=== PATIENT | male | born 1940 | race African-American/Black ===

== ENCOUNTER 2016-09-02 19:34 | Emergency (ER) | payer BC, OTHER ==
[2016-09-02] MEDS ORDERED: Adacel (T-DAP) 0.5 ML VIAL ONE (19:52)
--- NOTE | 2016-09-02 20:10 | RAD ---
THREE VIEWS OF THE LEFT SMALL FINGER 09/02/16 HISTORY: Caught object along the side of a trailer with injury to the distal aspect of the finger. FINDINGS: Three views of the left small finger shows no evidence of acute fracture or dislocation. Soft tissue swelling is seen in the distal aspect of the finger. IMPRESSION: Soft tissue swelling without underlying osseous abnormality. POS: [facility]
[2016-09-02] MEDS ORDERED: Lidocaine 1% 20 ML MDV ONE (20:20)
[2016-09-02] MEDS ORDERED: Bacitracin Zinc 1 Packet ONE (20:35)
== END 2016-09-02 20:48 | disposition home or self-care (01) ==
LOC: NAV ERS 19:34
DX: S61.217A Laceration without foreign body of left little finger without damage to nail, initial encounter (principal); I10 Essential (primary) hypertension; W23.0XXA Caught, crushed, jammed, or pinched between moving objects, initial encounter
CPT/HCPCS: 12001; 90471; 90715; J2001

== ENCOUNTER 2016-09-12 15:54 | Emergency (ER) | payer MEDICARE, BC | END 2016-09-12 16:25 | disposition home or self-care (01) | LOC: NAV ERS 15:54 | DX: S61.217D Laceration without foreign body of left little finger without damage to nail, subsequent encounter (principal); I25.10 Atherosclerotic heart disease of native coronary artery without angina pectoris; I25.2 Old myocardial infarction; I10 Essential (primary) hypertension; W20.8XXD Other cause of strike by thrown, projected or falling object, subsequent encounter ==

== ENCOUNTER 2018-04-26 22:10 | Emergency (ER) | payer MEDICARE, BC ==
[2018-04-26] MEDS ORDERED: Lidocaine 1% (PF) 30 ML VIAL ONE (22:46)
--- NOTE | 2018-04-26 23:18 | CT ---
CT HEAD WITHOUT CONTRAST: 04/26/18 COMPARISON: None. HISTORY: Fall, trauma, pain. TECHNIQUE: Axial CT imaging at 5 mm intervals from vertex through skull base with coronal and sagittal reformatt ed imaging. FINDINGS: There is soft tissue swelling involving the scalp laterally on the left superior to and anterior to t he left ear. There is no intracranial hemorrhage, midline shift, or mass effect noted. The paranasal sinuses/mastoid air cells are well aerated. There is no displaced calvarial fracture. IMPRESSION: Left lateral scalp swelling. No associated fracture or intracranial hemorrhage. POS: [facility]
[2018-04-26] MEDS ORDERED: Bacitracin Zinc 1 Packet ONE (23:44)
== END 2018-04-26 23:50 | disposition home or self-care (01) ==
LOC: NAV ERS 22:10
DX: S01.312A Laceration without foreign body of left ear, initial encounter (principal); S40.012A Contusion of left shoulder, initial encounter; S70.12XA Contusion of left thigh, initial encounter; I25.10 Atherosclerotic heart disease of native coronary artery without angina pectoris; I25.2 Old myocardial infarction; I10 Essential (primary) hypertension; W01.0XXA Fall on same level from slipping, tripping and stumbling without subsequent striking against object, initial encounter
CPT/HCPCS: 12011; 70450; J2001

== ENCOUNTER 2018-05-17 16:11 | Emergency (ER) | payer MEDICARE, BC ==
[2018-05-17] MEDS ORDERED: Acetaminophen 500 MG TAB ONE (17:14)
== END 2018-05-17 17:39 | disposition home or self-care (01) ==
LOC: NAV ERS 16:11
DX: B34.9 Viral infection, unspecified (principal); I25.10 Atherosclerotic heart disease of native coronary artery without angina pectoris; I25.2 Old myocardial infarction; I10 Essential (primary) hypertension
CPT/HCPCS: 87804; 99284

== ENCOUNTER 2018-05-23 15:13 | Emergency (ER) | payer MEDICARE, BC ==
[2018-05-23] MEDS ORDERED: Lidocaine 1% (PF) 30 ML VIAL ONE (16:08)
== END 2018-05-23 16:43 | disposition home or self-care (01) ==
LOC: NAV ERS 15:13
DX: S61.411A Laceration without foreign body of right hand, initial encounter (principal); I25.10 Atherosclerotic heart disease of native coronary artery without angina pectoris; I25.2 Old myocardial infarction; I10 Essential (primary) hypertension; W26.8XXA Contact with other sharp object(s), not elsewhere classified, initial encounter
CPT/HCPCS: 12002; J2001

== ENCOUNTER 2018-06-04 16:45 | Emergency (ER) | payer MEDICARE, BC | END 2018-06-04 17:15 | disposition home or self-care (01) | LOC: NAV ERS 16:45 | DX: S61.411D Laceration without foreign body of right hand, subsequent encounter (principal); I25.10 Atherosclerotic heart disease of native coronary artery without angina pectoris; I25.2 Old myocardial infarction; I10 Essential (primary) hypertension ==

== ENCOUNTER 2018-09-07 08:53 | Emergency (ER) | payer MEDICARE, BC ==
[2018-09-07] MEDS ORDERED: Ibuprofen 800 MG TAB ONE (09:09)
--- NOTE | 2018-09-07 09:21 | RAD ---
XR Shoulder Lt 3 View STANDARD: 09/07/2018 9:06 AM CLINICAL INDICATION: Fall with injury, left shoulder pain COMPARISON: None. FINDINGS: Fracture:Fracture fragments are present within the subacromial space, donor site located at the later al left humeral head overlying the region of the greater tuberosity Arthropathy:Mild to moderate Incidental findings:None of significance. IMPRESSION: 1. Evidence to indicate avulsion fracture with displacement of fracture fragments stemming from the r egion of the lateral left humeral head, retracted within the rotator cuff interval. Recommend orthopedic consultation.
--- NOTE | 2018-09-07 09:30 | RAD ---
XR Ribs Lt>=2 View W/PA CXR History: [Injury. Fall.] Comparison: Chest radiograph 2005 Findings: The aorta is mildly tortuous. Heart size mildly enlarged. No consolidation, pneumothorax, o r effusion. Mild scarring lung apices. No acute displaced rib fracture. There are osseous fragments in the left subacromial space. Impression: 1. No displaced rib fracture. 2. Mild cardiomegaly otherwise clear lungs. 3. Osseous fragments in the subacromial space likely avulsive in nature.
== END 2018-09-07 09:50 | disposition home or self-care (01) ==
LOC: NAV ERS 08:53
DX: S42.292A Other displaced fracture of upper end of left humerus, initial encounter for closed fracture (principal); I25.10 Atherosclerotic heart disease of native coronary artery without angina pectoris; I10 Essential (primary) hypertension; F32.9 Major depressive disorder, single episode, unspecified; Z87.891 Personal history of nicotine dependence; Z79.899 Other long term (current) drug therapy; Z79.82 Long term (current) use of aspirin; V80.010A Animal-rider injured by fall from or being thrown from horse in noncollision accident, initial encounter; Y93.52 Activity, horseback riding

== ENCOUNTER 2023-04-30 06:07 | Emergency (ER) | payer BC, MEDICARE ==
[2023-04-30] MEDS ORDERED: methylPREDNISolone Sod Succ/PF 125 MG/2 ML VIAL ONE (06:30)
== END 2023-04-30 06:50 | disposition home or self-care (01) ==
LOC: NAV ERS 06:07
DX: M46.1 Sacroiliitis, not elsewhere classified (principal); I10 Essential (primary) hypertension; Z87.891 Personal history of nicotine dependence
CPT/HCPCS: 96372; J2930

== ENCOUNTER 2023-05-12 01:50 | Emergency (ER) | payer MEDICARE ==
[2023-05-12] MEDS ORDERED: Ipratropium/Albuterol 3 ML NEB ONE ×2 (02:08→03:03)
[2023-05-12 02:16] LABS: #Basophils 0.3 thou/uL (0.0-0.2); #Eosinphils 0.6 thou/uL (0.0-0.7); #Lymphocytes 3.5 thou/uL (1.20-3.40); #Monocytes 1.4 thou/uL (0.11-0.59); #Neutrophils 25.4 thou/uL (1.40-6.50); %Basophils 0.8 % (0.0-1.0); %Eosinophils 1.9 % (0.0-10.0); %Lymphocytes 11.2 % (21.0-51.0); %Monocytes 4.5 % (0.0-10.0); %Neutrophils 81.5 % (42.0-75.0); Hematocrit 39.2 % (42.0-52.0); Mean Corpuscular HGB CONC 30.5 g/dL (32.0-36.0); Mean Corpuscular Hemoglobin 24.7 pg (27.0-31.0); Mean Corpuscular Volume 81.1 fl (78.0-98.0); Mean Platelet Volume 10.2 fL (7.4-10.4); Platelet Count 667 10x3/uL (130-400); RBC Distribution Width 23.6 % (11.5-14.5); Red Blood Cell (RBC) Count 4.83 mill/uL (4.70-6.10); White Blood Cell (WBC) Count 31.2 10x3/uL (4.8-10.8)
[2023-05-12 02:26] LABS: Bilirubin Negative (Negative); Blood, Urine Trace (Negative); Clarity Clear (Clear); Glucose, Urine (Dipstick) Negative (Negative); Ketone, Urine Negative (Negative); Leukocyte Negative (Negative); Nitrite Negative (Negative); Protein, Urine (Dipstick) > or equal to 300 mg/dL (Neg-Trace); pH, Urine 6.5 (5.0-9.0)
[2023-05-12] MEDS ORDERED: cefTRIAXone (ROCEPHIN) 2 GM VIAL ONE (02:26)
[2023-05-12] MEDS ORDERED: Ondansetron PF 4 MG/2 ML Vial ONE (02:26)
[2023-05-12] MEDS ORDERED: Sodium Chloride 0.9% 100 ML ONE (02:26)
[2023-05-12 02:27] LABS: Bacteria/HPF None Seen HPF (None Seen); CAUTI Indications for Culture Fever or rigors; RBC/HPF 0-3 HPF (0-3); Squamous Epithelial 0-3 HPF (0-3); WBC/HPF 0-3 HPF (0-3)
[2023-05-12 02:28] LABS: Urine Culture Reflex No No
[2023-05-12 02:31] LABS: ALT (SGPT) 34 U/L (8-55); AST (SGOT) 44 U/L (5-34); Albumin 3.8 g/dL (3.4-4.8); Alkaline Phosphatase 103 U/L (40-110); Anion Gap 19 mmol/L (10-20); BUN (Urea Nitrogen) 16 mg/dL (8.4-25.7); Bilirubin, Total 1.1 mg/dL (0.2-1.2); Calc. Creatinine Clearance 0 mL/min (70-130); Calcium 8.4 mg/dL (7.8-10.44); Carbon Dioxide 18 mmol/L (23-31); Chloride 106 mmol/L (98-107); Estimated GFR 73; Globulin 3.7 g/dL (2.4-3.5); Glucose 141 mg/dL (83-110); Potassium 4.8 mmol/L (3.5-5.1); Protein, Total 7.5 g/dL (5.8-8.1); Sodium 138 mmol/L (136-145); Troponin I 0.023 ng/mL (< 0.028)
[2023-05-12 02:47] LABS: SARS-CoV-2 NAA Rapid Test Not Detected (NotDetected)
[2023-05-12] MEDS ORDERED: Nitroglycerin 2% Ointment 1 INCH/1 GM Packet ONE (02:48)
== END 2023-05-12 03:26 ==
LOC: NAV ERS 01:50
DX: J18.9 Pneumonia, unspecified organism (principal); I10 Essential (primary) hypertension; J44.9 Chronic obstructive pulmonary disease, unspecified; I25.2 Old myocardial infarction; Z87.891 Personal history of nicotine dependence; Z79.82 Long term (current) use of aspirin; Z79.899 Other long term (current) drug therapy
CPT/HCPCS: 0240U; 71045; 80053; 81001; 83605; 83880; 84484; 85025; 87040; 93005; 94640; 94760; 96374; 96375; 99285; J0696; J2405; J3490; J7620